=== PATIENT | female | born 1970 | race Hispanic/Latino ===

== ENCOUNTER 2017-10-17 18:39 | Inpatient (IN) | payer SELFPAY ==
[~2017-10-17 18:39] MED LIST: ISOVUE-370 76%-LOCM 1 ML ONE; Iopamidol 370 76% 50 ML VIAL FS ONE
[2017-10-17 19:06] LABS: #Lymphocytes 2.7 thou/uL (1.20-3.40); #Monocytes 0.5 thou/uL (0.11-0.59); #Neutrophils 10.8 thou/uL (1.40-6.50); %Basophils 0.2 % (0.0-1.0); %Eosinophils 0.3 % (0.0-10.0); %Monocytes 3.2 % (0.0-10.0); %Neutrophils 77.3 % (42.0-75.0); Hemoglobin 10.7 g/dL (12.0-16.0); Mean Corpuscular HGB CONC 33.6 g/dL (32.0-36.0); Mean Corpuscular Hemoglobin 28.9 pg (27.0-31.0); Mean Corpuscular Volume 86.3 fl (81.0-99.0); Mean Platelet Volume 7.8 fL (7.4-10.4); Platelet Count 377 thou/uL (130-400); RBC Distribution Width 13.7 % (11.5-14.5); Red Blood Cell (RBC) Count 3.69 mill/uL (4.20-5.40)
[2017-10-17 19:28] LABS: ALT (SGPT) 10 U/L (8-55); AST (SGOT) 14 U/L (5-34); Albumin 2.8 g/dL (3.5-5.0); Alkaline Phosphatase 167 U/L (40-150); Anion Gap 16 mmol/L (10-20); BUN (Urea Nitrogen) 19 mg/dL (7.0-18.7); Bilirubin, Total 0.3 mg/dL (0.2-1.2); Calc. Creatinine Clearance 0 mL/min (70-130); Calcium 8.5 mg/dL (7.8-10.44); Carbon Dioxide 20 mmol/L (22-29); Chloride 94 mmol/L (98-107); Estimated GFR-MDRD 38; Glucose 514 mg/dL (70-105); Potassium 3.7 mmol/L (3.5-5.1); Protein, Total 7.8 g/dL (6.0-8.3); Sodium 126 mmol/L (136-145)
[2017-10-17] MEDS ORDERED: Insulin Regular 300 UNITS/3 ML VIAL ONE (19:32)
[2017-10-17 19:43] LABS: Magnesium 1.3 mg/dL (1.6-2.6); Phosphorus 3.7 mg/dL (2.3-4.7)
--- NOTE | 2017-10-17 20:11 | CT ---
CT OF ABDOMEN AND PELVIS 10/17/17 COMPARISON: None. HISTORY: Flank pain, left upper quadrant pain. TECHNIQUE: Serial axial CT imaging at 5 mm intervals from lung bases through pubic symphysis without contrast. C oronal reformatted imaging obtained. FINDINGS: Midline sternotomy wires are present. Imaged lung bases are unremarkable. There is free intraperitoneal air noted within the right upper quadrant, the ventral aspect of the mi d abdomen, and the left upper quadrant. evaluation of the viscera, bowel, vascular structures and for lymphadenopathy is limited without contrast media. Liver is grossly unremarkable. Probable cholelith iasis noted on image 30-31. There is a large wedge shaped area of abnormal hypodensity noted within t he mid portion of the spleen, measuring 4.4 cm in transverse dimension. There is free intraperitoneal gas in the region of the gastrohepatic ligament and zeeshan hepatis. The pancreas and adrenal glands are unremarkable. The right kidney is unremarkable. There is mild prominence of the intrarenal collecting system on the left. No nephrolithiasis is seen. There is an abnormal area of density within the ventral aspect of the left renal mid pole best seen o n image 33, where there is abnormal heterogeneous density which appears to be a mix of high and low d ensity measuring up to 2.7 x 3.5 cm. This is a nonspecific lesion emanating from the anterior aspect of the mid pole left kidney and could be related to tumor or trauma. There is free fluid layering within the posterior aspect of the pelvis, and within the inferior aspec t of bilateral pericolic gutters. No focal area of bowel wall thickening is seen and no evidence for bowel obstruction is apparent. There is atherosclerotic calcification of the abdominal aorta and its pelvic branches. Review of the osseous structures demonstrates no acute osseous abnormality. Of note there are a few punctate foci of gas within the area of hypodense splenic abnormality extendi ng into the subcapsular region of the spleen. IMPRESSION: 1. Free intraperitoneal air, concerning for perforated viscus. Surgical consultation advised. 2. Abnormality in the spleen with large area of wedge shaped hypodensity which could reflect lac eration or splenic infarction. Internal gas could signify superimposed infection. 3. Abnormal lobulated lesion of mixed density emanating from the anterior aspect of the mid pole left kidney. This could represent a spontaneous hemorrhage and/or a hemorrhagic tumor. Renal abscess not fully excluded. Results called to Dr. Avina at 7:55 p.m., 10/17/17. Code CR POS: SJ
[2017-10-17] MEDS ORDERED: Piperacillin/Tazobactam 3.375 GM in Sodium Chloride 0.9% 100 ML IVPB SCH (20:30)
[2017-10-17 20:51] LABS: CKMB 0.3 ng/mL (0-6.6); Troponin I Less than 0.010 ng/mL (< 0.028)
[2017-10-17] MEDS ORDERED: Morphine 4 MG/ML VIAL ONE (21:18)
[2017-10-17 21:23] LABS: Bilirubin Negative (Negative); Blood, Urine Trace (Negative); Clarity CLOUDY (Clear); Glucose, Urine (Dipstick) >=1000 mg/dL (Negative); Leukocyte Moderate (Negative); Nitrite Positive (Negative); Protein, Urine (Dipstick) 30 mg/dL (Neg-Trace); Specific Gravity, Urine 1.024 (1.002-1.036); pH, Urine 5.5 (5.0-9.0)
[2017-10-17 21:27] LABS: Bacteria/HPF Rare-Few HPF (None Seen); Hyaline Casts/LPF 0-3 HYALINE CAST LPF (0-3 Hyaline); RBC/HPF None Seen HPF (0-3); Squamous Epithelial None Seen HPF (0-3); WBC/HPF 0-3 HPF (0-3)
--- NOTE | 2017-10-17 23:00 | CT ---
CT ABDOMEN WITH CONTRAST CT PELVIS WITH CONTRAST: DATE: 10/17/17 TIME: 10:27 p.m. HISTORY: 47-year-old female with left flank pain and abnormal noncontrast CT. COMPARISON: Noncontrast CT of three hours ago, 10/17/17, 7:34 p.m. TECHNIQUE: IV injection of iodinated contrast media: 60 mL of Isovue 370 Oral contrast media: PO Isovue. FINDINGS: Again demonstrated is the free intraperitoneal air in the nondependent, anterior upper portion of the peritoneal cavity and scattered foci of extraluminal gas posterior to the right lobe of the liver an d in the falciform ligament and zeeshan hepatis. Enteric contrast material fills the stomach, and is pr esent in loops of jejunum, ileum, and in the cecum and ascending colon. There is currently no enteric contrast material in the second and third stages of duodenum. There are small amounts of free fluid in the abdominal cavity, including left paracolic gutter (which has increased since three hours ago), a moderate volume in the cul-de-sac in the pelvis, which has also increased since the previous study , and small amounts in the mesentery, abutting multiple small bowel loops. This free fluid has modera tely high density, consistent with blood. Some of the small bowel loops are at the upper limits of no rmal in caliber. No extravasated enteric contrast material is visualized. Again demonstrated is the l eft perirenal edema. The enhancement of the left renal parenchyma is diffusely slightly low, suggesti ve of pyelonephritis. There is an approximately 2 x 3.5 x 5 cm irregularly shaped mass broadly abutti ng the anterior surface of the left renal mid pole. It has low attenuation centrally, surrounded by i ntermediate attenuation that is slightly hypodense relative to the enhancing left renal parenchyma. T he bilateral renal collecting systems are mildly dilated, left greater than right. As previously ment ioned, there is a large moderately low attenuation irregularly shaped lesion across the central porti on of the spleen, which contains gas. There is also a small amount of gas along the left anterior edg e of the splenic capsule. There are several mildly enlarged zeeshan hepatis lymph nodes. The pancreas i s unremarkable. No adrenal nodule. No abnormality of the hepatic parenchyma. No abdominal aortic diss ection, aneurysm, or rupture. IMPRESSION: 1. Pneumoperitoneum is evidence for perforated viscus. 2. Small to moderate volume of hemoperitoneum has increased since three hours ago. 3. Moderately large splenic lesion which could be splenic laceration, possibly infected (contain s gas). 4. Evidence for pyelonephritis involving the left kidney. 5. A mass broadly abutting the anterior surface of the left kidney. This is suspected to be a he matoma or phlegmon/abscess in the left perirenal space. FOZIA Torres POS: JIN
[2017-10-17 23:22] LABS: Lactic Acid 1.4 mmol/L (0.5-2.2)
[2017-10-18] MEDS ORDERED: Bupivacaine/Epinephrine 0.25% 30 ML VIAL ONE (00:12)
[2017-10-18] MEDS ORDERED: Heparin 0 ML ONE (00:12)
[2017-10-18] MEDS ORDERED: Phenylephrine HCL 10 MG/ML VIAL ONE (00:18)
[2017-10-18] MEDS ORDERED: Fentanyl 100 MCG/2 ML VIAL ONE (00:18)
[2017-10-18] MEDS ORDERED: Insulin Regular 300 UNITS/3 ML VIAL ONE (00:27)
[2017-10-18] MEDS ORDERED: Piperacillin/Tazobactam 3.375 GM VIAL ONE (01:16)
[2017-10-18] MEDS ORDERED: SUGAMMADEX SODIUM 200 MG/2 ML VIAL ONE (03:52)
[2017-10-18] MEDS ORDERED: HYDROmorphone 0.5 MG/0.5 ML SYRINGE ONE ×2 (04:07)
[2017-10-18] MEDS ORDERED: Dextrose 5% in Water 1,000 ML IV PRN (04:38)
[2017-10-18] MEDS ORDERED: Dextrose 50% Abboject 50 ML SYRINGE SLOW IVP PRN (04:38)
[2017-10-18] MEDS ORDERED: Cepastat Lozenges 1 LOZ PO PRN (04:44)
[2017-10-18] MEDS ORDERED: Chloraseptic Spray 180 ml Bottle PO PRN (04:44)
[2017-10-18] MEDS ORDERED: Morphine 4 MG/ML VIAL SLOW IVP PRN ×3 (05:01→05:04)
[2017-10-18 05:04] VITALS: BMI 26.8
[2017-10-18 05:36] LABS: Anion Gap 11 mmol/L (10-20); BUN (Urea Nitrogen) 15 mg/dL (7.0-18.7); Calc. Creatinine Clearance 81 mL/min (70-130); Calcium 7.5 mg/dL (7.8-10.44); Carbon Dioxide 18 mmol/L (22-29); Chloride 108 mmol/L (98-107); Estimated GFR-MDRD 59; Glucose 236 mg/dL (70-105); Potassium 3.8 mmol/L (3.5-5.1); Sodium 133 mmol/L (136-145)
[2017-10-18] MEDS: Acetaminophen 1,000 MG in Premix Bag 1 BAG IVPB SCH ×4 (05:45→23:22)
[2017-10-18 05:54] LABS: Band 31 % (5-11); Hemoglobin 9.3 g/dL (12.0-16.0); Lymphocytes 15 % (21-51); MDiff Complete? YES; Mean Corpuscular HGB CONC 32.8 g/dL (32.0-36.0); Mean Corpuscular Hemoglobin 28.7 pg (27.0-31.0); Mean Corpuscular Volume 87.7 fl (81.0-99.0); Metamyelocyte 9 % (0-0); Monocytes 4 % (0-10); Neutrophil 41 % (42-75); PLT Morphology Comment Appears Adequate; Platelet Count 347 thou/uL (130-400); RBC Distribution Width 13.6 % (11.5-14.5); RBC Morphology Normal; Red Blood Cell (RBC) Count 3.23 mill/uL (4.20-5.40); White Blood Cell (WBC) Count 14.8 thou/uL (4.8-10.8)
--- NOTE | 2017-10-18 08:18 | HP ---
CHIEF COMPLAINT: Abdominal pain. HISTORY OF PRESENT ILLNESS: Ms. Martin is a 47-year-old woman with sudden onset of severe left-josé miguel ed abdominal pain around 6:00 yesterday evening. She came into the Emergency Room, because the pain was severe and worsening. She states that she was not doing anything unusual at the time of the onse t of pain. She was walking into a store and had to turn around and walked out, because she felt like she was going to pass out. She denies any fevers or chills, but did have nausea, although no vomiti ng. No diarrhea, constipation or change in her bowel habits. She has never had a colonoscopy, [facility], and she denies melena and hematochezia. She has multiple medical problems, but has not been taki ng any of her medications for the past year. She cannot name any alleviating factors except for pain medication received in the emergency room, the pain is worse when she gets up to walk. PAST MEDICAL HISTORY: Diabetes, hypertension, hyperlipidemia, and coronary artery disease. PAST SURGICAL HISTORY: Coronary artery bypass grafting in 2007, , oophorectomy, and tubal l igation. SOCIAL HISTORY: She does smoke, but not frequently. She denies drug use and drinks rarely. ALLERGIES: No known drug allergies. OUTPATIENT MEDICATIONS: None. She was previously on insulin. REVIEW OF SYSTEMS: Ten system review of systems is negative except per HPI. PHYSICAL EXAMINATION: VITAL SIGNS: Patient was tachycardic to 120 on her arrival in the emergency room, but came down to a bout 100, afebrile at 97.6, respiratory rate 20, 98% saturated on room air, blood pressure initially elevated as high as 162 systolic, but then came down to 116/76 after pain medication. GENERAL: Reveals a healthy appearing woman, in no acute distress. She is not flushed or toxic in ap pearance. She is not jaundiced or icteric. She is not diaphoretic. HEENT: Unremarkable. NECK: Supple, without lymphadenopathy or thyroid nodules. HEART: Slightly tachycardic, but regular. I do not appreciate any murmurs, rubs, or gallops. LUNGS: Clear to auscultation bilaterally, although she states that it does hurt to take a deep breat h. ABDOMEN: Soft but distended. She is quite tender to palpation on the left side and has some questio nable rebound tenderness. She does not exhibit rigidity or guarding. Bowel sounds are diminished. No palpable masses or hernias. Healed lower midline incision. EXTREMITIES: Warm and well perfused without edema. NEUROLOGIC: No focal deficits. PSYCHIATRIC: Alert, oriented, and appropriate. FAMILY HISTORY: Noncontributory. LABORATORY DATA AND IMAGING: White count is 14,000, hematocrit 31.8, platelets 377. Sodium 126, bic arbonate 20, BUN and creatinine are 19 and 1.46, glucose was 514 on admission. Alkaline phosphatase is mildly elevated, but other LFTs are fairly normal except for an albumin of 2.8. Lipase was normal at 39. A CT was obtained by the ER physician on her arrival due to concern for kidney stones. She did have trace blood on her UA as well as greater than 1000 glucose and 30 protein, moderate leukocyt e esterase and nitrites. The CT did not show any kidney stones, but it did show a left renal mass as well as what appeared to be a splenic laceration versus infarct with gas in the capsule of the splee n as well as free air in the abdomen. She had a small amount of fluid in the abdomen as well. A CT was obtained with IV and p.o. contrast, because no bowel abnormalities were noted and the source of h er free air was not evident. Even with contrast, the bowel appeared normal, but on the repeat CT the re was increasing fluid in the abdomen. ASSESSMENT AND PLAN: Presumed bowel perforation given free air and free fluid, renal mass of unclear etiology and splenic infarct versus laceration. I had a long discussion with the patient regarding her findings, I did recommend that we proceed with diagnostic laparoscopy with bowel resection if a p erforation is identified. She understands that if she has a colonic injury, colostomy or ileostomy w ill likely be necessary. She denies any history to her left flank or side to explain her splenic abn ormality. In regards to her renal mass, I will plan on getting Nephrology involved during this hospi talization, but do not see the need to consult them preoperatively. She does not have hydronephrosis , but she does have inflammation of her left kidney concerning for pyelo; however, her broad spectrum antibiotics should cover this as well. She does have blood and urine cultures sent and we will foll ow these. The inherent risks of the operation were discussed. These include but are not limited to bleeding, infection, risks of anesthesia, damage to nearby structures including bowel and blood vesse ls, and ureter, need for open surgery or additional procedures, need for colostomy or ileostomy and n eed for splenectomy. She understands and accepts these risks and wishes to proceed. Antibiotics hav e already been started in the emergency room and will be continued postoperatively.
[2017-10-18] MEDS: Piperacillin/Tazobactam 3.375 GM in Sodium Chloride 0.9% 100 ML IVPB SCH ×3 (09:35→19:51)
[2017-10-18] MEDS: Enoxaparin Sodium 40 MG/0.4 ML SYRINGE SC SCH (09:35)
[2017-10-18] MEDS: Pantoprazole 40 MG VIAL IVP SCH (09:36)
--- NOTE | 2017-10-18 12:15 | CON ---
DATE OF CONSULTATION: 10/18/2017 The patient was admitted last night with abdominal pain. Dr. Palafox is the general surgeon who thou ght she had an acute abdomen because she presented with severe abdominal pain, this was yesterday dee jo. It got worse. She has multiple medical problems as outlined. She thought she had a presumed bowel perforation gett ing free air and free fluid. She underwent a laparotomy for evaluation which I am told so far is unr emarkable. She is now in the ICU hypertensive. The patient is awake, alert, responsive. Denies any pain or difficulty breathing. PAST MEDICAL HISTORY: Diabetes, hypertension, hyperlipidemia, coronary artery disease. PAST SURGICAL HISTORY: Bypass in 2007, , tubal ligation. SOCIAL HISTORY: Alcohol infrequently. Tobacco, smokes 3-4 cigarettes. No history of TB or pneumonia. Asthma. 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 REVIEW OF SYSTEMS: Otherwise, 10-point negative. MEDICATIONS: Her list of medicine from home are unknown at this time. ALLERGIES: None. PHYSICAL EXAMINATION: GENERAL: She appears to be in no distress. She is awake, alert, responsive. VITAL SIGNS: Blood pressure is low 100/54, pulse of 68, sat 98%. EXTREMITIES: No edema. CHEST: Chest reveals decreased breath sounds, no wheezing. CARDIAC: Normal S1-S2. No gallops. ABDOMEN: Soft. No masses. LABORATORY DATA: White count 14,000, H&H 8 and 28, platelet count is 147, 41 segs, 31 bands. Sodium 133. Cultures are so far negative. IMPRESSION: 1. Acute abdomen. Negative laparotomy. 2. Diabetes. 3. Coronary artery disease. PLAN: She was started on Zosyn, IV fluids, supportive care. Continue antibiotics. Once blood press ure is resolved, she could probably be transferred out of the ICU. I will follow. This is a consultation note, 70 minutes of which 50% spent in direct patient care.
[2017-10-18] MEDS: Sodium Chloride 0.9% 1,000 ML IV SCH ×2 (13:05→19:55)
--- NOTE | 2017-10-18 19:44 | CON ---
DATE OF CONSULTATION: 10/18/2017 Consultation was requested for renal mass. HISTORY OF PRESENT ILLNESS: Patient is a 47-year-old female who is pleasant, but clearly noncompliant with her health who was admitted with severe left lower quadrant pain radiating to the vagina that she has never had before. A CT scan showed multiple abnormal findings including air that was concerning for perforation of a viscus. She was taken to the operating room where she had her appendix removed; however, by report, it does not sound like the appendix was the offending issue. She also had concerning findings from the left kidney standpoint, and I was consulted. The patient reports no prior histories of urinary tract infections, no gross hematuria, no kidney stones. She does have stress urinary incontinence, but no urge incontinence, requiring 2 pads a day. She normally has frequency q.2-3 hours, nocturia x2-3. She has no difficulty with urination, incomplete emptying or straining. Two weeks prior, she did notice what she describes and sounds consistent with pneumaturia; however, this stopped and she has not had it again. Her left lower quadrant pain since the surgery is significantly better. She overall feels much better now. PAST MEDICAL HISTORY: Diabetes since age 29 for which she supposed to take insulin, but does not; depression; coronary artery disease with a presumed VT. PAST SURGICAL HISTORY: CABG in 2007. PAST ASSISTANT GUEST SERVICES MANAGER. She has 1 , 2 vaginal deliveries, ovary was removed for a cyst and she had a tubal. She has periods, but they are getting less often and her last was in July. She is not concerned of being . MEDICATIONS: None. ALLERGIES: None. She never had a colonoscopy or mammogram. She had a Pap smear last year that was questionable, so she had another procedure, what sounds like colposcopy and she does not have the results of this. She had nausea, but no vomiting, no diarrhea, no constipation. No chest pain, no shortness of breath, no coughing. She has no concerns for prolapse. SOCIAL HISTORY: She lives with her daughter. Smokes 4-5 cigarettes a day and has approximately 99-sasg-lebr history. She has alcohol maybe once a month. She does no other drugs. FAMILY HISTORY: Mother is not healthy, but alive with diabetes and had a recent amputation. Father at 55 of walking pneumonia. PHYSICAL EXAMINATION: Afebrile and VSS GENERAL: She is alert and oriented and appears comfortable in the bed. HEENT: She does have some yellow tone to her skin, but did not have obvious scleral icterus. She has no obvious JVD. She had a NG tube draining bilious fluid. She has poor/missing dentition. CARDIOVASCULAR: She had regular rate and rhythm with no murmurs, gallops or rubs. LUNGS: Clear to auscultation bilaterally. ABDOMEN: Soft, appropriately tender with a wound VAC and incisions covered with multiple different bandages. She had no CVA tenderness. EXTREMITIES: No lower extremity edema. She had yellow urine draining from Acosta. LABORATORY DATA: White count of 14.8, 31 bands and anemia of 9.3 and 28.3. BUN and creatinine are 15 and 1.01 down from 1.46. Urinalysis revealed 0-3 wbc' s, no rbc's, rare bacteria, no squamous cells, but greater than 1000 glucose and 30 protein. There is no prior urinalyses. CT scan without contrast on 10/17/2017 was reviewed personally and showed no hydronephrosis, stones or other masses. There was a 4 x 4 x 3 cm left mid collection with hypodense area within it possibly consistent with an abscess or an infarcted region of the kidney associated with changes that do not seem consistent with a primary renal mass--especially when taken into consideration of the rest of the CT scan findings. Her right kidney was normal and her bladder appeared normal. A repeat scan from 10/18/2017 with contrast was reviewed personally and revealed 2.2 cm external collection/perinephric mass with decreased uptake in the medullary portion of the kidney adjacent to this without any stones, no hydronephrosis, no air in any of this area; however, there was what looked to be possible splenic infarcts or abscesses with air in the spleen. Her bladder was full with normal uterus, but there was a collection of fluid behind the uterus. I am not concerned for any obstruction or distention of the urinary tract--such report is likely more related to a full bladder for which she now has a Acosta. ASSESSMENT AND PLAN: A 47-year-old female with a primary process most likely related to the bowel and/or spleen with an associated probable small renal abscess status post an appendectomy after an exploratory laparotomy without any concerns for urine infection at this time. I reviewed all of this with her and how I would simply monitor this while giving IV antibiotics and repeat imaging in 2-3 days to better assess the renal collection depending on what other findings have been identified or transpire. I will follow along with you. KEILY
[2017-10-18] MEDS ORDERED: Lidocaine 1% PF 5 ML VIAL ONE (19:50)
[2017-10-18] MEDS ORDERED: PROPOFOL 200 MG/20 ML VIAL ONE (19:50)
[2017-10-18] MEDS ORDERED: Glycopyrrolate 0.2 MG/ML 5 ML SYRINGE ONE (19:50)
[2017-10-18] MEDS ORDERED: Succinylcholine Chloride 20 MG/ML 10 ml SYRINGE FS ONE (19:50)
--- NOTE | 2017-10-18 21:34 | PDOC.PN ---
- Subjective Encounter Start Date: 10/18/17 Encounter Start Time: 17:00 Patient seen and examined for med mngt. Abd discomfort over the surgical site/ gen. Chart reviewed. - Objective MAR Reviewed: Yes Vital Signs & Weight: Vital Signs (12 hours) Temp 10/18/17 19:00 98.4 F 10/18/17 16:00 98.4 F 10/18/17 11:00 97.9 F Weight Admit Weight 166 lb Weight 166 lb 0.129 oz Most Recent Monitor Data Heart Rate from ECG 92 NIBP 92/49 NIBP BP-Mean 64 Respiration from ECG 19 SpO2 95 I&O: 10/17/17 10/18/17 10/19/17 06:59 06:59 06:59 Intake Total 16.1 879.4 Output Total 295 1100 Balance -278.9 -220.6 Result Diagrams: 10/20/17 03:57 10/20/17 03:57 Additional Labs: Accuchecks 10/18/17 10/18/17 10/18/17 21:07 20:00 18:49 POC Glucose 115 H 115 H 114 H 10/18/17 10/18/17 10/18/17 17:25 16:22 15:15 POC Glucose 111 H 102 114 H 10/18/17 10/18/17 10/18/17 13:03 11:04 10:04 POC Glucose 95 121 H 101 10/18/17 10/18/17 10/18/17 09:09 08:08 07:08 POC Glucose 86 142 H 182 H 10/18/17 10/18/17 10/18/17 06:08 04:45 03:49 POC Glucose 204 H 250 H 258 H 10/18/17 02:46 POC Glucose 282 H Radiology Reviewed by me: No (CT abd - reviewed) EKG Reviewed by me: Yes (Tele SR) Phys Exam - Physical Examination Constitutional: NAD NG tube + Respiratory: no wheezing, no rhonchi Cardiovascular: RRR, no rub Gastrointestinal: positive bowel sounds mild gen tend Musculoskeletal: no edema Neurological: moves all 4 limbs Psychiatric: A&O x 3 Dx/Plan - Plan DVT proph w/SCDs IMPRESSION: 1. DM2 - uncontrolled 2. CAD s/p CABG 3. Metabolic acidosis - Lactic acidosis/Mild DKA 4. HTN 5. HLD / Med noncompliance PLAN: * Cont Insulin drip * AM labs including Mg/P * Will add PRN meds * Will follow. Thank you for this consultation. Review of Systems - Review of Systems Cardiovascular: negative: chest pain, palpitations, orthopnea, paroxysmal nocturnal dyspnea, edema, light headedness, other Gastrointestinal: negative: Nausea, Vomiting, Abdominal Pain, Diarrhea, Constipation, Melena, Hematochezia, Other - Medications/Allergies Allergies/Adverse Reactions: Allergies Allergy/AdvReac Type Severity Reaction Status Date / Time No Known Drug Allergies Allergy Verified 10/18/17 03:58 Medications: Current Medications Dextrose/Water (Dextrose 50%) 25 gm SLOW IVP PRN PRN PRN Reason: PER HYPOGLYCEMIC PROTOCOL Enoxaparin Sodium (Lovenox) 40 mg SC 0900 [facility] Last Admin: 10/18/17 09:35 Dose: 40 mg Glucagon (Glucagon) 1 mg SC PRN PRN PRN Reason: PER HYPOGLYCEMIC PROTOCOL Insulin Human Regular 100 (units/ Sodium Chloride) 101 mls @ 0 mls/hr IVPB INF JO; As Directed PRN Reason: Protocol Dextrose/Water (D5w) 1,000 mls @ 0 mls/hr IV INF PRN; As Directed PRN Reason: PRN HYPOGLYCEMIC PROTOCOL Piperacillin Sod/Tazobactam (Sod 3.375 gm/ Sodium Chloride) 100 mls @ 200 mls/ hr IVPB 0200,0800,1400,2000 [facility] Last Admin: 10/18/17 19:51 Dose: 100 mls Acetaminophen 1,000 mg/ Device 100 mls @ 400 mls/hr IVPB Q6HR [facility] Stop: 10/19/17 06:01 Last Admin: 10/18/17 17:25 Dose: 100 mls Sodium Chloride (Normal Saline 0.9%) 1,000 mls @ 100 mls/hr IV .Q10H [facility] Last Admin: 10/18/17 19:55 Dose: 1,000 mls Insulin Detemir (Levemir) 0 units SC ONE PRN PRN Reason: POST-OP PROTOCOL Stop: 10/23/17 04:39 Insulin Human Regular (Humulin R) 0 units SC Q4H PRN; Protocol PRN Reason: POST OP SLIDING SCALE Morphine Sulfate (Morphine) 1 mg SLOW IVP Q1H PRN PRN Reason: Mild Pain (1-3) Morphine Sulfate (Morphine) 2 mg SLOW IVP Q1H PRN PRN Reason: Moderate Pain (4-6) Morphine Sulfate (Morphine) 3 mg SLOW IVP Q1H PRN PRN Reason: Severe Pain (7-8) Morphine Sulfate (Morphine) 4 mg SLOW IVP Q1H PRN PRN Reason: Severe Pain (9-10) Pantoprazole Sodium (Protonix) 40 mg IVP DAILY [facility] Last Admin: 10/18/17 09:36 Dose: 40 mg Phenol (Chloraseptic [place] 180 Ml Bot) 0 ml PO Q1H PRN PRN Reason: SORE THROAT Sodium Chloride (Flush - Normal Saline) 10 ml IV DAILY [facility] Last Admin: 10/18/17 19:52 Dose: 10 ml Sodium Chloride (Flush - Normal Saline) 10 ml IVF Q12HR [facility] Last Admin: 10/18/17 19:52 Dose: 10 ml Sodium Chloride (Flush - Normal Saline) 10 ml IVF PRN PRN PRN Reason: Saline Flush Throat Lozenges (Cepastat Lozenges) 1 daniel PO Q2H PRN PRN Reason: SORE THROAT
[2017-10-18] MEDS: Morphine 4 MG/ML VIAL SLOW IVP PRN (22:07)
[2017-10-19] MEDS: Piperacillin/Tazobactam 3.375 GM in Sodium Chloride 0.9% 100 ML IVPB SCH ×4 (01:46→20:23)
[2017-10-19] MEDS: Morphine 4 MG/ML VIAL SLOW IVP PRN ×2 (03:06→09:15)
--- NOTE | 2017-10-19 03:32 | OP ---
DATE OF SURGERY: 10/18/2017 PROCEDURE: Diagnostic hand-assisted laparoscopy and appendectomy. HISTORY: Ms. Martin is a 47-year-old woman who presented to the hospital with sudden onset of abdo manuel pain; free fluid and free air on CT. Her pain was primarily left-sided in location and she had early signs of peritonitis. Recommendation was made to proceed to the operating room for laparoscop y, possible laparotomy, possible bowel resection, possible ostomy. She was also noted to have a sple maureen abnormality consistent with a possible laceration or infarction with some subcapsular gas, so she was consented for splenectomy as well. PROCEDURE IN DETAIL: After informed consent was obtained and appropriate preoperative antibiotics co ntinued, the patient was taken to the operating room. She was placed in the supine position and gene ral endotracheal anesthesia was administered. She was prepped and draped in a standard sterile fashi on. Local anesthesia infused to the skin and subcutaneous tissues at the level of the umbilicus. A transverse skin incision was made and the fascia was elevated. A Veress needle was placed into the a bdominal cavity without difficulty and carbon dioxide gas easily insufflated to an intra-abdominal pr essure of 15, which the patient tolerated well. Opening pressure was 5. The Veress needle was withd rawn and a [place] scope advanced under direct vision into the abdominal cavity, which was carefull y examined. There was no evidence of Veress needle or of trocar injury. The patient was noted to palmer ve purulent exudate on the bowel, as well as brown murky fluid consistent with feculent peritonitis. She had some minimal lower midline omental adhesions as well, but no other significant intra-abdomin al adhesions. Local anesthesia was infused in the right and left lateral positions and 5-mm trocars placed under direct laparoscopic vision. Some of the murky fluid was suctioned out and sent for cult ure. This had a foul odor to it, again consistent with feculent peritonitis. The abdomen was suctio jazmín clear of as much of the fluid as possible with several 100 mL removed. This was primarily in the paracolic gutters and pelvis with the most purulent fluid in the left paracolic gutter. The colon a ppeared pink, soft, and normal. There was no visible perforation on the antimesenteric side. The ap pendix tip appeared inflamed, but it was felt that this was likely reactive due to being in the pelvi s. The cecum and transverse colon were filled with gas and soft and pliable, as was the descending a nd sigmoid colon. However, on evaluation of the left paracolic gutter, there was a large amount of p urulent fluid behind the descending colon concerning for the origin of perforation. This was unable to be adequately exposed laparoscopically, so the decision was made to place a hand port. The colon was rotated medially, but the plane behind the colon appeared normal. The bowel was carefully palpat ed and no perforation was able to be identified and no thickened or inflamed segment of colon was fou nd. The left colon was rotated medially to carefully examine the entire surface, but there was no ab normality identified and there was no palpable gas within the mesocolon. The splenic flexure was sof t and pliable and the surface of the spleen was palpated, and large amount of purulent fluid suctione d out from around the spleen, but the splenic capsule was not entered and the spleen itself was not f ully mobilized. The stomach and duodenum were soft and normal in appearance as well, and the small i ntestine from the ligament of Treitz to the ileocecal valve was soft and normal. There was no biliou s staining of the peritoneal fluid consistent with a gastric or small bowel perforation. The appendi x was removed due to inability to exclude appendicitis. The mesoappendix was ligated down to the bas e, which was normal. Two endoloops were placed and the appendix was divided and removed through the GelPort. The abdomen was copiously irrigated to clear. The colon was then submerged in saline and g as moved from the right colon through the transverse colon down to the descending colon into the sigm oid colon under saline, carefully observing for any bubbling of gas and none was observed. Since the re were no focal abnormalities able to be identified in the bowel and no secondary evidence of inflam mation to help localize a perforation, the decision was made to irrigate the abdomen and place drains and carefully observe the patient with plans to return to the OR after imaging with rectal contrast if any further feculent drainage was noted. The abdomen was irrigated with 9 mL of warm saline until all return was clear. Drains were brought out through the right lateral and suprapubic ports with t he right drain placed on the right paracolic gutter and into the pelvis, and the suprapubic trocar pl aced at the left paracolic gutter and lateral to the spleen. These were secured to the skin and the other dissecting trocars removed under direct vision and hemostasis verified. The GelPort was then r emoved and the omentum brought down under the midline incision. Seprafilm was placed and the fascia was closed under direct vision with a running PDS suture. The skin incisions were copiously irrigate d. The drains were secured to the skin with drain sutures and the epigastric and suprapubic incision s closed with 4-0 Monocryl. The umbilicus was reapproximated and wet-to-dry dressings placed at the hand-port incision. The patient was extubated and taken to CCU in stable condition. Estimated blood loss was minimal. There were no complications. SPECIMENS: Appendix and peritoneal fluid for Gram stain and culture.
[2017-10-19 04:29] LABS: Anion Gap 8 mmol/L (10-20); BUN (Urea Nitrogen) 14 mg/dL (7.0-18.7); Calc. Creatinine Clearance 92 mL/min (70-130); Calcium 7.7 mg/dL (7.8-10.44); Carbon Dioxide 21 mmol/L (22-29); Chloride 112 mmol/L (98-107); Estimated GFR-MDRD 68; Glucose 116 mg/dL (70-105); Magnesium 1.3 mg/dL (1.6-2.6); Phosphorus 3.1 mg/dL (2.3-4.7); Potassium 3.3 mmol/L (3.5-5.1); Sodium 138 mmol/L (136-145)
[2017-10-19 04:33] LABS: Band 43 % (5-11); Hemoglobin 8.4 g/dL (12.0-16.0); Lymphocytes 18 % (21-51); MDiff Complete? YES; Mean Corpuscular HGB CONC 32.5 g/dL (32.0-36.0); Mean Corpuscular Hemoglobin 29.1 pg (27.0-31.0); Mean Corpuscular Volume 89.6 fl (81.0-99.0); Neutrophil 39 % (42-75); PLT Morphology Comment Appears Adequate; Platelet Count 336 thou/uL (130-400); RBC Distribution Width 13.6 % (11.5-14.5); Red Blood Cell (RBC) Count 2.89 mill/uL (4.20-5.40); White Blood Cell (WBC) Count 14.1 thou/uL (4.8-10.8)
[2017-10-19] MEDS ORDERED: Insulin Detemir 100 UNITS/ML 4 UNITS in Pre-Filled Syringe 1 EACH SC SCH (04:45)
[2017-10-19] MEDS: Acetaminophen 1,000 MG in Premix Bag 1 BAG IVPB SCH (05:26)
[2017-10-19] MEDS ORDERED: CCU Electrolyte Replacement 1 EACH FS SCH (07:27)
[2017-10-19] MEDS ORDERED: Potassium Phosphate 9 MMOL in Sodium Chloride 0.9% 100 ML IVPB PRN (07:31)
[2017-10-19] MEDS ORDERED: Potassium Phosphate 15 MMOL in Sodium Chloride 0.9% 250 ML 250 ML IV PRN (07:31)
[2017-10-19] MEDS ORDERED: Magnesium 2 GM/NS 0.9% 100 ML 2 GM in Premix Bag 1 BAG IVPB PRN (07:31)
[2017-10-19] MEDS ORDERED: CCU ELECTROLYTE REPLACEMENT PROTOCOL FS PRN (07:31)
[2017-10-19] MEDS ORDERED: Potassium Chloride 20 MEQ TAB PO PRN (07:31)
[2017-10-19] MEDS ORDERED: Magnesium Oxide 400 MG TAB PO PRN ×2 (07:31)
[2017-10-19] MEDS ORDERED: Potassium Phosphate 12 MMOL in Sodium Chloride 0.9% 250 ML 250 ML IV PRN (07:31)
[2017-10-19] MEDS ORDERED: Potassium Chloride 40 MEQ in Premix Bag 1 BAG IVPB PRN (07:31)
[2017-10-19] MEDS ORDERED: Potassium Chloride 40 MEQ in Sodium Chloride 0.9% 250 ML 250 ML IVPB PRN (07:31)
[2017-10-19] MEDS: Sodium Chloride 0.9% 1,000 ML IV SCH ×2 (08:22→20:25)
[2017-10-19] MEDS: Pantoprazole 40 MG VIAL IVP SCH (08:23)
[2017-10-19] MEDS: Enoxaparin Sodium 40 MG/0.4 ML SYRINGE SC SCH (08:23)
--- NOTE | 2017-10-19 09:21 | PRG ---
DATE OF SERVICE: 10/19/2017 SUBJECTIVE: This morning, awake, alert, responsive, better, less abdominal pain. No shortness of br eath. She is coughing, but clear sputum. OBJECTIVE: VITAL SIGNS: Temperature is 98, pulse 87, blood pressure 106/56, respirations 18, sats are 100%. CHEST: No wheezing or crackles. CARDIAC: Normal S1, S2, no gallops. ABDOMEN: Soft. LABORATORY DATA: White count 14,000, H&H is 8 and 25, platelet count 336, 43 bands, 39 neutrophils, potassium is 3.3. Urine is growing E. coli. IMPRESSION: 1. Acute abdomen, negative laparotomy. 2. Urinary tract infection. 3. Major bandemia. PLAN: Continue antibiotics, supportive care, and PT. Disposition as per General Surgery. Concerned about the marked bandemia. We will follow while in the ICU.
[2017-10-19] MEDS: Potassium Chloride 20 MEQ in Premix Bag 1 BAG IVPB SCH ×2 (09:47→11:44)
--- NOTE | 2017-10-19 11:59 | PRG ---
DATE OF SERVICE: 10/19/2017 SUBJECTIVE: The patient still feels well, significantly better than upon admission. She has passed gas and feels some rumbling in her abdomen. OBJECTIVE: Her vitals have been stable, satting 100% on room air. NG tube put out 300, drains toget her put out 170, and urine output was 1340. The NG tube still has light green drainage. Urine outpu t is clear. LABORATORY DATA: Her urine culture and peritoneal fluid culture show E. coli, which is sensitive to Zosyn. Her creatinine is improved at 0.89. Her white count is stable, but bands have increased. ASSESSMENT AND PLAN: In assessment, we have a 47-year-old female, admitted with a concern for bowel perforation, status post exploratory laparotomy and appendectomy with positive urine culture and smal l renal abscess, but unsure whether this is translocation, making the original source of infection un clear at this time. Given she is clinically improving, I would continue IV antibiotics and I will re peat the CT scan in the next 24-48 hours. Continue Zosyn and Acosta for now.
[2017-10-19] MEDS ORDERED: Dextrose 5% in Water 1,000 ML IV PRN (12:57)
[2017-10-19] MEDS ORDERED: traMADol HCl 50 MG TAB PO PRN (15:41)
[2017-10-19] MEDS ORDERED: Acetaminophen 500 MG TAB PO PRN (15:41)
--- NOTE | 2017-10-19 16:49 | PRG ---
DATE OF SERVICE: 10/19/2017 SUBJECTIVE: Ms. Fabiano Martin is in the ICU, transfer orders have been written by hospitalist to t surgical floor. The patient complains of minimal pain and states she is feeling much better. OBJECTIVE: VITAL SIGNS: Blood pressure 103/60, heart rate 86, respiratory rate 26. Patient's NG tube output palmer s been 300 mL in the last 24 hours. Acosta output is 1340 in the last 24 hours. GIUSEPPE drain is more ser ous fluid. The patient reports passing flatus. LUNGS: Clear to auscultation. CARDIAC: Regular rate and rhythm without murmur or gallop. ABDOMEN: Soft and nontender. Bowel sounds are diminished. EXTREMITIES: Unremarkable. LABORATORY DATA: White count 14, hemoglobin 8.4, BUN 14, creatinine 0.89, sodium 138. ASSESSMENT AND PLAN: Doing well. Agree with transfer to the floor. We will plan to remove her NG t ube. We will allow her to increase her activity, continue her GIUSEPPE drain.
--- NOTE | 2017-10-19 19:36 | PDOC.PN ---
- Subjective Encounter Start Date: 10/19/17 Encounter Start Time: 11:30 Patient seen and examined for med mngt. No new complaints. No overnight events - Objective MAR Reviewed: Yes Vital Signs & Weight: Vital Signs (12 hours) Temp Pulse Resp BP Pulse Ox 10/19/17 16:15 97.4 F L 96 20 125/73 97 10/19/17 16:00 97.4 F L 96 20 97 10/19/17 12:00 98.7 F 10/19/17 08:00 98.6 F 90 20 96 Weight Admit Weight 166 lb Weight 166 lb 0.129 oz Most Recent Monitor Data Heart Rate from ECG 90 NIBP 111/66 NIBP BP-Mean 82 Respiration from ECG 25 SpO2 100 I&O: 10/18/17 10/19/17 10/20/17 06:59 06:59 06:59 Intake Total 16.1 2460.3 1267 Output Total 295 1810 265 Balance -278.9 650.3 1002 Result Diagrams: 10/20/17 03:57 10/20/17 03:57 Additional Labs: Accuchecks 10/19/17 10/19/17 10/19/17 17:14 11:47 04:36 POC Glucose 94 109 111 H 10/19/17 10/19/17 10/19/17 03:14 01:57 00:04 POC Glucose 128 H 131 H 131 H 10/18/17 10/18/17 10/18/17 23:28 22:12 21:07 POC Glucose 125 H 122 H 115 H 10/18/17 10/18/17 10/18/17 20:00 18:49 17:25 POC Glucose 115 H 114 H 111 H EKG Reviewed by me: Yes (Tele SR) Phys Exam - Physical Examination Constitutional: NAD NG tube Respiratory: no wheezing, no rhonchi Cardiovascular: RRR, no rub Gastrointestinal: soft, positive bowel sounds Musculoskeletal: no edema Neurological: moves all 4 limbs Dx/Plan - Plan DVT proph w/SCDs IMPRESSION: 1. DM2 - better controlled 2. CAD s/p CABG 3. Metabolic acidosis - Lactic acidosis/Mild DKA 4. HTN 5. HLD / Hypokalemia/ Hypomagnesemia/ Med noncompliance PLAN: * Cont post op Insulin sliding scale * Replace electrolytes * AM labs Review of Systems - Review of Systems Cardiovascular: negative: chest pain, palpitations, orthopnea, paroxysmal nocturnal dyspnea, edema, light headedness, other Gastrointestinal: negative: Nausea, Vomiting, Abdominal Pain, Diarrhea, Constipation, Melena, Hematochezia, Other - Medications/Allergies Allergies/Adverse Reactions: Allergies Allergy/AdvReac Type Severity Reaction Status Date / Time No Known Drug Allergies Allergy Verified 10/18/17 03:58 Medications: Current Medications Acetaminophen (Tylenol) 1,000 mg PO Q6H PRN PRN Reason: Moderate to Severe Pain (6-10) Dextrose/Water (Dextrose 50%) 25 gm SLOW IVP PRN PRN PRN Reason: PER HYPOGLYCEMIC PROTOCOL Enoxaparin Sodium (Lovenox) 40 mg SC 0900 [facility] Last Admin: 10/19/17 08:23 Dose: 40 mg Glucagon (Glucagon) 1 mg SC PRN PRN PRN Reason: PER HYPOGLYCEMIC PROTOCOL Piperacillin Sod/Tazobactam (Sod 3.375 gm/ Sodium Chloride) 100 mls @ 200 mls/ hr IVPB 0200,0800,1400,2000 [facility] Last Admin: 10/19/17 16:00 Dose: 100 mls Sodium Chloride (Normal Saline 0.9%) 1,000 mls @ 100 mls/hr IV .Q10H [facility] Last Admin: 10/19/17 08:22 Dose: 1,000 mls Dextrose/Water (D5w) 1,000 mls @ 0 mls/hr IV .Q0M PRN; As Directed PRN Reason: Hypoglycemia Insulin Human Regular (Humulin R) 0 units SC Q4H PRN; Protocol PRN Reason: POST OP SLIDING SCALE Morphine Sulfate (Morphine) 2 mg SLOW IVP Q1H PRN PRN Reason: Moderate Pain (4-6) Last Admin: 10/19/17 09:15 Dose: 2 mg Morphine Sulfate (Morphine) 4 mg SLOW IVP Q1H PRN PRN Reason: Severe Pain (9-10) Pantoprazole Sodium (Protonix) 40 mg IVP DAILY [facility] Last Admin: 10/19/17 08:23 Dose: 40 mg Phenol (Chloraseptic Wall 180 Ml Bot) 0 ml PO Q1H PRN PRN Reason: SORE THROAT Polyethylene Glycol (Miralax) 17 gm PO DAILY [facility] Sodium Chloride (Flush - Normal Saline) 10 ml IV DAILY [facility] Last Admin: 10/19/17 08:23 Dose: 10 ml Sodium Chloride (Flush - Normal Saline) 10 ml IVF Q12HR [facility] Last Admin: 10/19/17 08:23 Dose: 10 ml Sodium Chloride (Flush - Normal Saline) 10 ml IVF PRN PRN PRN Reason: Saline Flush Throat Lozenges (Cepastat Lozenges) 1 daniel PO Q2H PRN PRN Reason: SORE THROAT Tramadol HCl (Ultram) 50 mg PO Q6H PRN PRN Reason: Pain 1ST LINE Tramadol HCl (Ultram) 100 mg PO Q6H PRN PRN Reason: Pain 2ND LINE
[2017-10-20] MEDS: Piperacillin/Tazobactam 3.375 GM in Sodium Chloride 0.9% 100 ML IVPB SCH ×4 (02:14→20:43)
[2017-10-20 04:22] LABS: #Eosinphils 0.1 thou/uL (0.0-0.7); #Lymphocytes 2.3 thou/uL (1.20-3.40); #Monocytes 0.6 thou/uL (0.11-0.59); #Neutrophils 11.5 thou/uL (1.40-6.50); %Basophils 0.3 % (0.0-1.0); %Eosinophils 0.7 % (0.0-10.0); %Lymphocytes 15.9 % (21.0-51.0); %Monocytes 4.1 % (0.0-10.0); Hemoglobin 8.8 g/dL (12.0-16.0); Mean Corpuscular HGB CONC 33.2 g/dL (32.0-36.0); Mean Corpuscular Hemoglobin 30.3 pg (27.0-31.0); Mean Corpuscular Volume 91.1 fl (81.0-99.0); Mean Platelet Volume 7.6 fL (7.4-10.4); Platelet Count 357 thou/uL (130-400); RBC Distribution Width 13.8 % (11.5-14.5); White Blood Cell (WBC) Count 14.5 thou/uL (4.8-10.8)
[2017-10-20 04:34] LABS: Anion Gap 9 mmol/L (10-20); BUN (Urea Nitrogen) 11 mg/dL (7.0-18.7); Calc. Creatinine Clearance 101 mL/min (70-130); Carbon Dioxide 21 mmol/L (22-29); Chloride 107 mmol/L (98-107); Estimated GFR-MDRD 75; Glucose 97 mg/dL (70-105); Magnesium 1.6 mg/dL (1.6-2.6); Phosphorus 2.5 mg/dL (2.3-4.7); Potassium 4.1 mmol/L (3.5-5.1); Sodium 133 mmol/L (136-145)
[2017-10-20] MEDS: Sodium Chloride 0.9% 1,000 ML IV SCH ×3 (05:12→22:57)
[2017-10-20] MEDS ORDERED: ISOVUE-370 76%-LOCM 1 ML ONE (06:30)
[2017-10-20] MEDS: Enoxaparin Sodium 40 MG/0.4 ML SYRINGE SC SCH (08:41)
[2017-10-20] MEDS: Pantoprazole 40 MG VIAL IVP SCH (08:41)
[2017-10-20] MEDS: Polyethylene Glycol 3350 17 GM Packet PO SCH (08:41)
--- NOTE | 2017-10-20 13:28 | PRG ---
DATE OF SERVICE: 10/20/2017 SUBJECTIVE: Awake, alert, and responsive. No shortness of breath. OBJECTIVE: VITAL SIGNS: Blood pressure 130/81, sats are 95% on room air, respiration rate 18, temperature 98. CHEST: Chest reveals decreased breath sounds, no wheezing or crackles. CARDIAC: Normal S1, S2, no gallops. ABDOMEN: Soft. LABORATORY DATA: Urine is growing E. coli sensitive to the present antibiotics. White count is 14,0 00, H&H is 8 and 26, otherwise sodium is 133. IMPRESSION: 1. Status post lap, respiratory resolved. 2. Urinary tract infection. PLAN: Disposition as per Surgery. Pulmonary and Critical care will follow at a distance.
--- NOTE | 2017-10-20 15:49 | CT ---
CT ABDOMEN AND PELVIS WITH AND WITHOUT CONTRAST: INDICATIONS: Assess function and left perirenal abscess. Exam was performed to follow up on a splenic lesion n oted on the prior study. COMPARISON: 10/17/2017 TECHNIQUE: Multiple axial tomograms obtained through the abdomen and pelvis pre and post IV contrast. Post cont rast images were obtained in portal venous and delayed venous phases, following a urogram protocol. FINDINGS: The patient is postop since the prior exam. There are internal drainage catheters present, and the p atient underwent an appendectomy at the time of the exploratory surgery, according to the technologis t. There is now a small left pleural effusion. There is a tiny right pleural effusion. There is bibasi lar lung atelectasis. The liver is unremarkable. There continues to be a larger area of low attenuation within the spleen, similar in size to the prio r exam. There continue to be a few scattered tiny gas pockets within this area of low attenuation, a s described on the prior exam. The pancreas is unremarkable. The adrenal glands are unremarkable. There continues to be a low density, mass-like area involving the superior mid left kidney, anteriorl y. There is surrounding haziness, and there appears to be surrounding enhancement. The localized ar ea of low attenuation, anteriorly, measures 3 cm. There is also los attenuation within the renal cor edwin, involving the left kidney, similar to the prior study. There is diffuse decreased enhancement i n the left kidney. The findings continue to suggest left pyelonephritis with intrarenal and perirena l abscess collection. The right kidney is unremarkable. The ureters are unremarkable. The urinary bladder is unremarkable. Small bowel loops are of normal caliber. The colon is unremarkable. The uterus and adnexa are unremarkable. On the delayed sequence, there is excretion of contrast in the collecting structures bilaterally. Th ere is distortion of the collecting structures of the upper mid left kidney, at the site of the mass. There is a filling defect within the renal pelvis, on the left, which could represent hematoma or i nfection. There is contrast seen in both ureters, although the left ureter shows wall thickening and inflammatory stranding. IMPRESSION: 1. Small bilateral pleural effusions with bibasilar atelectasis is now present. 2. Irregularly-shaped low attenuation in the spleen that is unchanged in size and extent when compar ed to the prior study. There continues to be tiny gas pockets within this area of low attenuation. 3. The left kidney shows perinephric haziness, decreased enhancement/function, an abnormal low atten uation in the anterior cortex, and an exophytic area of low attenuation, consistent with a perirenal abscess collection. These findings involving the left kidney do not appear significantly changed fro m 10/17/2017. 4. The delayed sequence images show distortion of the upper mid collecting structures of the left ki dney and filling defect within the collecting structures of the left kidney, as described above. POS: KIEL
--- NOTE | 2017-10-20 16:02 | PRG ---
DATE OF SERVICE: 10/20/2017 SUBJECTIVE: Patient is done well overnight, and someone removed her catheter. She has been voiding fine. She has no flank pain, only abdominal pain. She is not nauseous. She has been passing gas and tolerating clear liquids. OBJECTIVE: She has remained afebrile with vital signs stable; it appears that only 195mL has been measured for output, but I suspect this is because the catheter has been removed and not measured appropriately. She has no CVA tenderness. LABORATORY DATA: Her white count is stable at 14.5. H&H is stable at 8.8 and 26.4 and her creatinine is good at 0.81. ASSESSMENT AND PLAN: We have a 47-year-old female admitted with concern for bowel perforation, status post exlap/appendectomy and no obvious etiology of perforation. She also has a small renal abscess that is clinically improving. I will repeat a CT scan in the next 24 hours to ensure it is stable. Unless it is enlarged, given her clinical improvement, I would continue IV antibiotics only. I stressed to her that she will need to continue these even as an outpatient for a total of 4 weeks. She should continue getting IV antibiotics as long as she is in house. I'll continue to follow along. KEILY
[2017-10-20] MEDS: traMADol HCl 50 MG TAB PO PRN (21:04)
--- NOTE | 2017-10-20 22:33 | PDOC.PN ---
- Subjective Encounter Start Date: 10/20/17 Encounter Start Time: 12:00 Patient seen and examined for med mngt. No new complaints. No overnight events - Objective MAR Reviewed: Yes Vital Signs & Weight: Vital Signs (12 hours) Temp Pulse Resp BP BP Pulse Ox 10/20/17 19:32 98 F 97 16 129/78 96 10/20/17 15:50 97.9 F 95 20 152/87 H 97 10/20/17 12:00 98.3 F 88 20 128/75 98 Weight Admit Weight 166 lb Weight 166 lb 0.129 oz Most Recent Monitor Data Heart Rate from ECG 90 NIBP 111/66 NIBP BP-Mean 82 Respiration from ECG 25 SpO2 100 I&O: 10/19/17 10/20/17 10/21/17 06:59 06:59 06:59 Intake Total 2460.3 2237 500 Output Total 1810 305 545 Balance 650.3 1932 -45 Result Diagrams: 10/20/17 03:57 10/20/17 03:57 Additional Labs: Accuchecks 10/20/17 10/20/17 10/20/17 20:51 17:01 12:53 POC Glucose 285 H 203 H 127 H 10/20/17 10/20/17 10/20/17 08:41 05:19 01:49 POC Glucose 104 102 104 Phys Exam - Physical Examination Constitutional: NAD Respiratory: no wheezing, no rhonchi Cardiovascular: RRR, no rub Gastrointestinal: soft, positive bowel sounds mild gen tenderness Musculoskeletal: no edema Dx/Plan - Plan DVT proph w/lovenox, DVT proph w/SCDs IMPRESSION/PLAN: 1. DM2 Add NPH Cont sliding scale Dec IVF rate to 70 ml/hr Add 10 units NPH daily 2. CAD s/p CABG Will add low dose ASA 3. HTN - controlled Cont to monitor 4. HLD / Hypokalemia/ Hypomagnesemia/ Med noncompliance / Metabolic acidosis - Lactic acidosis/Mild DKA - improved 5. Bowel perforation/Renal abscess - Mngt per Surg/Urology Review of Systems - Review of Systems Respiratory: negative: Cough, Dry, Shortness of Breath, Hemoptysis, SOB with Excertion, Pleuritic Pain, Sputum, Wheezing Cardiovascular: negative: chest pain, palpitations, orthopnea, paroxysmal nocturnal dyspnea, edema, light headedness, other - Medications/Allergies Allergies/Adverse Reactions: Allergies Allergy/AdvReac Type Severity Reaction Status Date / Time No Known Drug Allergies Allergy Verified 10/18/17 03:58 Medications: Current Medications Acetaminophen (Tylenol) 1,000 mg PO Q6H PRN PRN Reason: Moderate to Severe Pain (6-10) Dextrose/Water (Dextrose 50%) 25 gm SLOW IVP PRN PRN PRN Reason: PER HYPOGLYCEMIC PROTOCOL Enoxaparin Sodium (Lovenox) 40 mg SC 0900 [facility] Last Admin: 10/20/17 08:41 Dose: 40 mg Glucagon (Glucagon) 1 mg SC PRN PRN PRN Reason: PER HYPOGLYCEMIC PROTOCOL Piperacillin Sod/Tazobactam (Sod 3.375 gm/ Sodium Chloride) 100 mls @ 200 mls/ hr IVPB 0200,0800,1400,2000 [facility] Last Admin: 10/20/17 20:43 Dose: 100 mls Dextrose/Water (D5w) 1,000 mls @ 0 mls/hr IV .Q0M PRN; As Directed PRN Reason: Hypoglycemia Sodium Chloride (Normal Saline 0.9%) 1,000 mls @ 70 mls/hr IV .[id number] [facility] Insulin Human NPH (Humulin N) 10 unit SC QAM-WM [facility] Insulin Human Regular (Humulin R) 0 units SC Q4H PRN; Protocol PRN Reason: POST OP SLIDING SCALE Morphine Sulfate (Morphine) 2 mg SLOW IVP Q1H PRN PRN Reason: Moderate Pain (4-6) Last Admin: 10/19/17 09:15 Dose: 2 mg Morphine Sulfate (Morphine) 4 mg SLOW IVP Q1H PRN PRN Reason: Severe Pain (9-10) Pantoprazole Sodium (Protonix) 40 mg PO DAILY [facility] Phenol (Chloraseptic Rescue 180 Ml Bot) 0 ml PO Q1H PRN PRN Reason: SORE THROAT Polyethylene Glycol (Miralax) 17 gm PO DAILY [facility] Last Admin: 10/20/17 08:41 Dose: 17 gm Saccharomyces Boulardii (Florastor) 250 mg PO DAILY [facility] Sodium Chloride (Flush - Normal Saline) 10 ml IV DAILY [facility] Last Admin: 10/19/17 08:23 Dose: 10 ml Sodium Chloride (Flush - Normal Saline) 10 ml IVF Q12HR [facility] Last Admin: 10/20/17 20:44 Dose: 10 ml Sodium Chloride (Flush - Normal Saline) 10 ml IVF PRN PRN PRN Reason: Saline Flush Throat Lozenges (Cepastat Lozenges) 1 daniel PO Q2H PRN PRN Reason: SORE THROAT Tramadol HCl (Ultram) 50 mg PO Q6H PRN PRN Reason: Pain 1ST LINE Last Admin: 10/19/17 23:11 Dose: 50 mg Tramadol HCl (Ultram) 100 mg PO Q6H PRN PRN Reason: Pain 2ND LINE Last Admin: 10/20/17 21:04 Dose: 100 mg
[2017-10-20] MEDS: Insulin Regular 300 UNITS/3 ML VIAL SC PRN (23:05)
[2017-10-21] MEDS: Piperacillin/Tazobactam 3.375 GM in Sodium Chloride 0.9% 100 ML IVPB SCH ×4 (02:08→20:34)
[2017-10-21] MEDS: Insulin Regular 300 UNITS/3 ML VIAL SC PRN (02:14)
[2017-10-21 04:22] LABS: Band 5 % (5-11); Hemoglobin 8.8 g/dL (12.0-16.0); Lymphocytes 24 % (21-51); MDiff Complete? YES; Mean Corpuscular HGB CONC 32.4 g/dL (32.0-36.0); Mean Corpuscular Hemoglobin 28.8 pg (27.0-31.0); Mean Corpuscular Volume 89.1 fl (81.0-99.0); Mean Platelet Volume 7.2 fL (7.4-10.4); Metamyelocyte 1 % (0-0); Monocytes 7 % (0-10); Neutrophil 63 % (42-75); PLT Morphology Comment Appears Adequate; Platelet Count 357 thou/uL (130-400); RBC Distribution Width 14.1 % (11.5-14.5); Red Blood Cell (RBC) Count 3.05 mill/uL (4.20-5.40); White Blood Cell (WBC) Count 11.7 thou/uL (4.8-10.8)
[2017-10-21 04:35] LABS: Anion Gap 10 mmol/L (10-20); BUN (Urea Nitrogen) 9 mg/dL (7.0-18.7); Calc. Creatinine Clearance 96 mL/min (70-130); Calcium 7.7 mg/dL (7.8-10.44); Carbon Dioxide 23 mmol/L (22-29); Chloride 103 mmol/L (98-107); Estimated GFR-MDRD 71; Glucose 207 mg/dL (70-105); Potassium 3.7 mmol/L (3.5-5.1); Sodium 132 mmol/L (136-145)
[2017-10-21] MEDS: Enoxaparin Sodium 40 MG/0.4 ML SYRINGE SC SCH (09:29)
[2017-10-21] MEDS: Aspirin 81 mg Enteric Coated Tablet PO SCH (09:30)
[2017-10-21] MEDS: Polyethylene Glycol 3350 17 GM Packet PO SCH (09:30)
[2017-10-21] MEDS: Saccharomyces boulardii 250 MG CAP PO SCH (09:30)
--- NOTE | 2017-10-21 10:31 | PRG ---
DATE OF SERVICE: 10/21/2017 SUBJECTIVE: Awake, alert, and responsive. Denies coughing or wheezing. OBJECTIVE: VITAL SIGNS: Remains afebrile, temperature 98, sats 95% room air, respirations 16, pulse 92, blood p ressure 128/57. CHEST: No wheezing or crackles. CARDIAC: Normal S1 and S2, no gallops. ABDOMEN: Soft. LABORATORY DATA: White count 11,000. Electrolytes are normal. IMAGING: She had a repeat CT abdomen and pelvis done yesterday, [facility] IMPRESSION: 1. Status post laparoscopy for abdominal pain, negative. 2. Bibasilar atelectasis, stable. 3. No evidence of renal failure. PLAN: Antibiotics as per Surgery. Pulmonary and Critical care will follow at a distance. Antibioti cs should suffice for her pulmonary process. Ambulation. Avoid smoking. Please call as needed.
--- NOTE | 2017-10-21 10:58 | PRG ---
DATE OF SERVICE: 10/21/2017 SUBJECTIVE: The patient feels well. She has some less abdominal pain. She has no flank pain or arlin k pain. She is voiding without difficulty. She is tolerating a diet. OBJECTIVE: VITAL SIGNS: Vital signs have been stable. She has remained afebrile, heart rate remains in the 90s -100s. She is saturating 95% on room air. Her urine output is no longer being recorded. She has no CVA tenderness. LABORATORY DATA: White count has come down to 11.7 with bands of 5. Her H&H is stable. Creatinine is stable at 0.85 and cultures have not changed with E. coli being present in both her peritoneal flu id and her urine. CT scan, which was repeated from 10/20/2017 and reviewed personally reveals about a 2 x 3 cm external collection depending on which portion you measure up to 4 cm collection which is relatively unchange d from the prior exam. It just is now a more organized collection with contrast being excreted all t he way down to the bladder and concern for a filling defect that might be related to papillary necros is, but definitely not concerning from a hematuria standpoint as she has none of this. Her other CT findings are relatively unchanged as well. ASSESSMENT: We have a 47-year-old diabetic female with a renal abscess and positive urine culture as well as CT findings concerning for perforated viscus, although none has been noted and a urinalysis that was relatively unremarkable upon admission. From my standpoint, she definitely needs 4 weeks of antibiotics and I would reimage her with a renal ultrasound at that time to determine whether the co llection has resolved and the need for further antibiotics would be indicated depending on the result s. However, based on all the other CT findings, I think it is a good idea to get Infectious Disease involved so they can give recommendations on how long she would need IV versus oral and which antibio tics would be most appropriate at this time so I have consulted them and would appreciate their exper tise.
[2017-10-21] MEDS: NPH, Human Insulin Isophane 300 UNIT/3 ML VIAL SC SCH (11:54)
[2017-10-21] MEDS: traMADol HCl 50 MG TAB PO PRN (12:07)
[2017-10-21] MEDS: Sodium Chloride 0.9% 1,000 ML IV SCH (12:32)
[2017-10-21] MEDS ORDERED: Dextrose 50% Abboject 50 ML SYRINGE SLOW IVP PRN (15:49)
[2017-10-21] MEDS ORDERED: Dextrose 5% in Water 1,000 ML IV PRN (15:49)
--- NOTE | 2017-10-21 16:07 | PDOC.PN ---
- Subjective Encounter Start Date: 10/21/17 Encounter Start Time: 16:05 Ms. Martin was seen in follow-up of Bowel perforation, and diabetes. She says she feels much better. She has less abdominal pain. - Objective MAR Reviewed: Yes Vital Signs & Weight: Vital Signs (12 hours) Temp Pulse Resp BP Pulse Ox 10/21/17 11:08 98.5 F 94 16 135/80 96 10/21/17 09:05 99.5 F 100 18 151/88 H 95 10/21/17 08:00 99.5 F 100 18 Weight Admit Weight 166 lb Weight 166 lb 0.129 oz Most Recent Monitor Data Heart Rate from ECG 90 NIBP 111/66 NIBP BP-Mean 82 Respiration from ECG 25 SpO2 100 I&O: 10/20/17 10/21/17 10/22/17 06:59 06:59 06:59 Intake Total 2237 2440 Output Total 305 590 Balance 1932 1850 Result Diagrams: 10/21/17 03:52 10/21/17 03:52 Additional Labs: Accuchecks 10/21/17 10/21/17 10/21/17 11:07 05:22 02:08 POC Glucose 214 H 149 H 270 H 10/20/17 10/20/17 20:51 17:01 POC Glucose 285 H 203 H Phys Exam - Physical Examination HEENT: PERRLA Respiratory: no wheezing, no rales, no rhonchi, clear to auscultation bilateral Cardiovascular: RRR, no significant murmur, no rub Gastrointestinal: soft, no distention, positive bowel sounds + LLQ and RLQ tenderness, no rebound or guarding Musculoskeletal: no edema Dx/Plan (1) Bowel perforation Code(s): K63.1 - PERFORATION OF INTESTINE (NONTRAUMATIC) Status: Acute (2) Diabetes mellitus type 2 in nonobese Code(s): E11.9 - TYPE 2 DIABETES MELLITUS WITHOUT COMPLICATIONS Status: Acute (3) Hypertension Code(s): I10 - ESSENTIAL (PRIMARY) HYPERTENSION Status: Acute (4) Renal abscess Code(s): N15.1 - RENAL AND PERINEPHRIC ABSCESS Status: Acute - Plan * Bowel perforation with peritonitis- ? ruptured appendicitis- Continue Zosyn * Renal abscess- as above- continue Zosyn, and ID has been consulted to determine antibiotic choice and length of therapy * DM- blood glucose is stable- will change to standard SSI * HTN - blood pressure is stable * DVT and GI Prophylaxis .
[2017-10-21] MEDS: HumaLOG 300 UNITS/3 ML VIAL SC PRN ×2 (16:47→20:59)
[2017-10-21 17:12] LABS: HIV (1/2) Antibody/Antigen Non-Reactive (NonReactive); HIV 1/2 INDEX 0.08 S/CO (<1.00); Hep C IgG Ab Non-Reactive (NonReactive); Hep C Index 0.18 S/CO (0-0.79)
--- NOTE | 2017-10-21 21:48 | CON ---
DATE OF CONSULTATION: 10/21/2017 REASON FOR CONSULTATION: Peritonitis, renal abscess, and splenic lesion. HISTORY OF PRESENT ILLNESS: A 47-year-old admitted on 10/18/2017 about 3 days ago. When she presented with type 2 diabetes history, hypertension, coronary artery disease with prior bypass graft surgery, quite early age and well until about 3 months before when she was visiting some relatives in [place] and developed what she describes as left-sided flank pain associated with chills. After a few days, it went away and then on the day of admission, she developed progressive worsening pain and again on the left lower quadrant and left flank area and then this pain became generalized. She had denied any headaches, no visual symptoms, sore throat, odynophagia, dysphagia, no vomiting, no cough or sputum production or chest pain. No dysuria or hematuria. She did have a recollection of passing what she describes as air or gas through urination recently. She was admitted and was tachycardic on arrival with blood pressure 160/70 and temperature was 97.6. The abdomen was distended. General surgery consult obtained. Dr. Palafox did a laparoscopic intervention and assisted, there was obvious evidence of brown fluid in the peritoneal cavity. This was washed away and careful inspection did not identify any evidence of leakage in the colon. The appendix was removed. Cultures from the area yielded E. coli with a broad susceptibility profile. Cultures from the urine also with a similar organism. Urinalysis demonstrated 0-3 wbc's greater than 1000 glucose, protein 30. White cell count has come down from 14,000-11,700. Currently, Ms. Martin sitting by the bedside, still not feeling very well, but better than on admission. The abdominal pain has improved of about 70%. REVIEW OF SYSTEMS: Ten-point review of systems is as above. PAST MEDICAL HISTORY: Coronary artery disease with bypass graft surgery, type 2 diabetes, hypertension, hyperlipidemia. PAST SURGICAL HISTORY: Includes also , oophorectomy, and tubal ligation. 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 She smokes daily, used to drink rare infrequently. No drug use reported. ALLERGIES: None. CURRENT MEDICATIONS: Ecotrin, dextrose, Lovenox, glucagon, insulin, morphine, p.r.n. Protonix, Zosyn, tramadol. FAMILY HISTORY: Noncontributory. PHYSICAL EXAMINATION: VITAL SIGNS: T-max 99.5, blood pressure 130/80, pulse 94, respirations 16-18, O2 sat 96%. GENERAL: Appears no distress. SKIN: GIUSEPPE drain in the right side of the abdomen. She has a midline or left side of the midline, negative pressure dressing in place. Does not have a Acosta catheter at this time, since it was removed a few days ago. No lymphadenopathy. HEENT: Ocular movements conjugate. Oral cavity normal. NECK: Supple, no jugular vein distention. LUNGS: With diminished breath sounds at the bases. HEART: S1, S2, regular rate. No wheezing, no crackles. ABDOMEN: Bymd-vl-ginjtraaja distended, soft, mildly tender. Bowel sounds are present. EXTREMITIES: She moves extremities equally. No edema. Pulses 1+ in dorsalis pedis. Could not feel posterior tibialis, popliteals are faintly palpable. LABORATORY DATA: White cell count 11.7, hemoglobin 8.8, platelets 357 at this time. Creatinine is 0.85. AST 14, ALT 10, total bilirubin 0.3, alkaline phosphatase 167, albumin 2.8, and globulin 5.0. The latest abdomen and pelvis CT demonstrated small bilateral pleural effusions, irregularly shaped low attenuation in the spleen unchanged in size and extent, tiny gas pockets in this area, and left kidney with perinephric area haziness, and exophytic area of low attenuation consistent with perirenal abscess collection. Pathology of the appendix showed appendicitis with intramural acute inflammatory cells present. ASSESSMENT: 1. Renal abscess. 2. Splenic involvement from renal abscess and peritonitis secondary to renal abscess extension into the peritoneal cavity. The appendicitis probably is from the secondary effects of the peritonitis on the appendiceal structure. DISCUSSION: This is a quite unusual case, but case reports such as this have been published in the literature of patients with renal abscesses particularly in the left side, opening up into the peritoneal cavity and causing peritonitis. Typically, we have monomicrobial Gram-negative angelika pathogens recovered such as the E. coli that was identified in this case, which is the same one from urinary tract sample. The splenic findings are probably secondary to the same issue. The Spleen is frequently involved either via hematogenous route or through the direct involvement from organs anatomically close to the spleen such as the left kidney and the pancreas or the colon. In terms of management fortunately, the organism is susceptible to quinolones. I would advise discharge planning on oral quinolone for anywhere from 4-6 weeks, monitoring the progress of the patient's CT scan in the outpatient setting. KEILY
--- NOTE | 2017-10-21 22:17 | PDOC.GSPN ---
Surgery Progress Note: Subj - Subjective Narrative: Feels better, tolerating diet. Positive flatus and bowel movement. 45 mL slightly cloudy serous drainage from each GIUSEPPE yesterday. Wound clean and granulating. Pansensitive E Coli on urine and peritoneal cultures. Doing well, monoculture results suggest urologic source for peritonitis. Will likely transition to oral antibiotics tomorrow and discharge home soon. Continue VAC for now, consider delayed primary closure. Patient formerly seen in [facility] and intends to reestablish care there. Surgery Progress Note: Obj - Vital signs Vital signs: Vital Signs - Most Recent Temp Pulse Resp BP Pulse Ox 97.3 F L 100 16 164/88 H 99 10/21/17 19:58 10/21/17 19:58 10/21/17 19:58 10/21/17 19:58 10/21/17 19:58 Surgery Progress Note: Results - Labs Result Diagrams: 10/21/17 03:52 10/21/17 03:52 Lab results: Laboratory Results - last 24 hr 10/21/17 10/21/17 10/21/17 11:07 16:00 16:19 POC Glucose 214 H 292 H Hepatitis C Antibody Non-Reactive HIV 1&2 Antigen & Ab Non-Reactive 10/21/17 20:39 POC Glucose 190 H Hepatitis C Antibody HIV 1&2 Antigen & Ab
[2017-10-22] MEDS: Piperacillin/Tazobactam 3.375 GM in Sodium Chloride 0.9% 100 ML IVPB SCH ×2 (02:17→08:33)
[2017-10-22] MEDS: Sodium Chloride 0.9% 1,000 ML IV SCH ×2 (04:00→16:41)
[2017-10-22] MEDS: HumaLOG 300 UNITS/3 ML VIAL SC PRN ×4 (06:57→22:21)
[2017-10-22] MEDS: Aspirin 81 mg Enteric Coated Tablet PO SCH (08:38)
[2017-10-22] MEDS: Saccharomyces boulardii 250 MG CAP PO SCH (08:38)
[2017-10-22] MEDS: Polyethylene Glycol 3350 17 GM Packet PO SCH (08:38)
[2017-10-22] MEDS: Enoxaparin Sodium 40 MG/0.4 ML SYRINGE SC SCH (08:38)
[2017-10-22] MEDS: NPH, Human Insulin Isophane 300 UNIT/3 ML VIAL SC SCH (08:39)
--- NOTE | 2017-10-22 11:32 | PRG ---
DATE OF SERVICE: 10/22/[address] Mckay is much appreciated. SUBJECTIVE: The patient is still doing well and has no complaints and no pain. OBJECTIVE: Her vitals are stable. She remained afebrile with a T-max of 99 and the heart rate in 90 s. She is listed as voided on her urine output. She appears comfortable in a chair by the bed and i s reading. LABORATORY DATA: No new labs to review. ASSESSMENT: We have a 47-year-old female with what appears to be urinary tract infection that result ed in an abscess that resulted in translocation versus bacteremia with multisource components of infe ction, but doing well on IV antibiotics after exploratory laparotomy and appendectomy with a renal ab scess not enlarging at this time. Based on ID recommendations, I would switch her over to oral antib iotics when discharge is anticipated, and I emphasized with her that she will need to take these for at least 4 weeks if not longer. I will order an ultrasound at the 4-week interval as an outpatient a nd see her in the office to determine the need for any further antibiotics thereafter. I also emphas ized that she needs to take care of her sugars. This is another reason why she would not do well as an outpatient. I reviewed all of this in detail and answered all of her questions.
[2017-10-22] MEDS ORDERED: Ciprofloxacin 500 MG TAB PO SCH ×2 (13:00→20:00)
--- NOTE | 2017-10-22 14:00 | PDOC.PN ---
- Subjective Encounter Start Date: 10/22/17 Encounter Start Time: 12:45 Ms. Martin was seen today in follow-up of E.coli sepsis, with peritonitis, and renal abscess. She says she is feeling better. she has less pain. She has been tolerating a solid diet - Objective MAR Reviewed: Yes Vital Signs & Weight: Vital Signs (12 hours) Temp Pulse Resp BP Pulse Ox 10/22/17 11:40 98.5 F 91 16 129/81 98 10/22/17 08:39 98.7 F 92 14 148/87 H 96 10/22/17 07:15 99 F 91 16 10/22/17 04:00 99 F 91 16 133/81 95 Weight Admit Weight 166 lb Weight 166 lb 0.129 oz Most Recent Monitor Data Heart Rate from ECG 90 NIBP 111/66 NIBP BP-Mean 82 Respiration from ECG 25 SpO2 100 I&O: 10/21/17 10/22/17 10/23/17 06:59 06:59 06:59 Intake Total 2440 1160 960 Output Total 590 55 60 Balance 1850 1105 900 Result Diagrams: 10/21/17 03:52 10/21/17 03:52 Additional Labs: Accuchecks 10/22/17 10/22/17 10/21/17 10:47 05:50 20:39 POC Glucose 242 H 190 H 190 H 10/21/17 16:19 POC Glucose 292 H Phys Exam - Physical Examination HEENT: PERRLA Respiratory: no wheezing, no rales, no rhonchi, clear to auscultation bilateral Cardiovascular: RRR, no significant murmur, no rub Gastrointestinal: soft, non-tender, positive bowel sounds Musculoskeletal: no edema Dx/Plan (1) Bowel perforation Code(s): K63.1 - PERFORATION OF INTESTINE (NONTRAUMATIC) Status: Acute (2) Diabetes mellitus type 2 in nonobese Code(s): E11.9 - TYPE 2 DIABETES MELLITUS WITHOUT COMPLICATIONS Status: Acute (3) Hypertension Code(s): I10 - ESSENTIAL (PRIMARY) HYPERTENSION Status: Acute (4) Renal abscess Code(s): N15.1 - RENAL AND PERINEPHRIC ABSCESS Status: Acute - Plan * Peritonitis, and renal abscess due to E. Coli- ID recommendations noted. This was probably due to an originally urologic source. * She has been changed to Cipro, orally, and can be discharge home on this for 4 -6 weeks when she is ready * She will need re-imaging of the kidneys in 4 weeks * DM- blood glucose is stable * HTN - blood pressure is stable. * Disposition as per Surgery
[2017-10-22] MEDS: Ciprofloxacin 500 MG TAB PO SCH (19:11)
[2017-10-22] MEDS ORDERED: Lidocaine 1% w/Epinephrine 1:100K 20 ML VIAL FS SCH (19:30)
[2017-10-22] MEDS: traMADol HCl 50 MG TAB PO PRN (22:24)
[2017-10-23 05:50] LABS: #Eosinphils 0.1 thou/uL (0.0-0.7); #Lymphocytes 2.4 thou/uL (1.20-3.40); #Neutrophils 7.3 thou/uL (1.40-6.50); %Basophils 0.2 % (0.0-1.0); %Eosinophils 1.1 % (0.0-10.0); %Lymphocytes 22.4 % (21.0-51.0); %Monocytes 9.1 % (0.0-10.0); %Neutrophils 67.3 % (42.0-75.0); Mean Corpuscular HGB CONC 32.7 g/dL (32.0-36.0); Mean Corpuscular Hemoglobin 28.8 pg (27.0-31.0); Mean Corpuscular Volume 88.2 fl (81.0-99.0); Mean Platelet Volume 7.1 fL (7.4-10.4); Platelet Count 380 thou/uL (130-400); RBC Distribution Width 14.1 % (11.5-14.5); Red Blood Cell (RBC) Count 3.12 mill/uL (4.20-5.40); White Blood Cell (WBC) Count 10.9 thou/uL (4.8-10.8)
[2017-10-23] MEDS: Ciprofloxacin 500 MG TAB PO SCH (07:12)
[2017-10-23] MEDS: NPH, Human Insulin Isophane 300 UNIT/3 ML VIAL SC SCH (08:31)
[2017-10-23] MEDS: Sodium Chloride 0.9% 1,000 ML IV SCH (08:31)
[2017-10-23] MEDS: Aspirin 81 mg Enteric Coated Tablet PO SCH (08:32)
[2017-10-23] MEDS: Saccharomyces boulardii 250 MG CAP PO SCH (08:33)
[2017-10-23] MEDS: Enoxaparin Sodium 40 MG/0.4 ML SYRINGE SC SCH (08:33)
[2017-10-23] MEDS: Polyethylene Glycol 3350 17 GM Packet PO SCH (08:33)
[2017-10-23] MEDS ORDERED: Bacitracin Zinc 1 Packet TOP SCH (10:00)
[2017-10-23] MEDS: HumaLOG 300 UNITS/3 ML VIAL SC PRN (14:14)
[2017-10-23] MEDS ORDERED: NPH, Human Insulin Isophane 300 UNIT/3 ML VIAL SC SCH (15:00)
--- NOTE | 2017-10-23 15:41 | DIS ---
DATE OF ADMISSION: 10/18/2017 DATE OF DISCHARGE: 10/23/2017 PRIMARY CARE PROVIDER: [facility]. DISCHARGE DISPOSITION: Home. ADMITTING PROVIDER: Henry Palafox M.D. DISCHARGE MEDICATIONS: Tramadol 50 mg 1 or 2 tabs at bedtime p.r.n., Florastor 250 mg a day, NPH ins ulin 10 units subq in the morning, Cipro 500 mg p.o. b.i.d., and aspirin 81 mg a day. ALLERGIES: None. CODE STATUS: FULL. HOSPITAL COURSE: Patient admitted through the emergency room to the service of Dr. Henry Palafox. Patient was presented with abdominal pain. CT with suspected bowel perforation with free air or flui d. The patient was found to have elevated white count of 14,000, hemoglobin 10.3. Initial sodium 12 6, potassium 3.7, creatinine 1.46, BUN 19. Initial blood sugar was 475. Lactic acid was 2.5. The p atient eventually grew E. coli from her peritoneal fluid and her urine. The E. coli was pansensitive . On 10/18/2017, she was taken to the operating room and found to have fluid in the abdomen and infl madeleine appendix, which was removed. She was eventually seen in consultation by Dr. Jeanne Worthy, [facility], Dr. Emmanuel Yin, Pulmonology, [facility]. The patient was treated with approp riate pain medicines, IV antibiotics initially. She had been transitioned to oral antibiotics. It h as been explained to her that she will have to take oral antibiotics at least 4 weeks post-hospitaliz ation. During her hospital stay, her white count came down steadily from 14.8 high to 10.9, hemoglob in has remained in the 9-10 range. Platelet count is normal. She had an acute kidney failure which rapidly resolved with IV fluids postoperatively. She was followed with Accu-Chek sliding scale, long -acting insulin. Currently, she is alert, cooperative, pleasant with no complaints, desirous of lucero g home. Vital signs, blood pressure 151/85, pulse 91, respirations 16, temperature 97.9. Cardioresp iratory exam is normal. Abdomen is soft. Good bowel sounds. She is being discharged by Dr. Palafox . Follow up with Dr. Jeanne Worthy 3-4 weeks. Follow up with Dr. Henry Palafox in 14 days. She is on diabetic diet.
[2017-10-23 16:29] VITALS: BP 149/83; TEMP 98.1
== END 2017-10-23 17:11 | disposition home or self-care (01) | DRG 853 ==
LOC: ERS 18:39 → SDC/OP 10-18 00:39 → CCU 10-18 02:19 → SURG B 10-19 16:31
PROVIDERS: ADMIT Surgery; ATTEND Surgery
PROC: 0D9W0ZX Drainage of Peritoneum, Open Approach, Diagnostic (ICD-10-PCS; principal; 2017-10-18)
PROC: 0DTJ0ZZ Resection of Appendix, Open Approach (ICD-10-PCS; 2017-10-18)
DX: A41.51 Sepsis due to Escherichia coli [E. coli] (principal); K63.1 Perforation of intestine (nontraumatic); N15.1 Renal and perinephric abscess; K35.3 Acute appendicitis with localized peritonitis; N39.0 Urinary tract infection, site not specified; J91.8 Pleural effusion in other conditions classified elsewhere; J98.11 Atelectasis; D72.825 Bandemia; I10 Essential (primary) hypertension; E78.5 Hyperlipidemia, unspecified; I25.10 Atherosclerotic heart disease of native coronary artery without angina pectoris; Z72.0 Tobacco use; Z95.1 Presence of aortocoronary bypass graft; Z91.19 Patient's noncompliance with other medical treatment and regimen; E11.65 Type 2 diabetes mellitus with hyperglycemia; Z79.84 Long term (current) use of oral hypoglycemic drugs; E83.42 Hypomagnesemia
CPT/HCPCS: 36415; 36416; 74176; 74177; 74178; 80048; 80053; 81003; 81015; 82010; 82550; 82553; 83605; 83690; 83735; 84100; 84484; 85007; 85025; 85027; 86803; 86850; 86900; 86901; 87040; 87070; 87077; 87086; 87186; 87205; 87389; 88304; 93005; 96361; 96365; 96366; 96375; 99406; A4216; C9113; J0131; J1170; J1644; J1650; J1815; J2001; J2270; J2370; J2543; J2704; J3010; J3475; J3480; J7050

== ENCOUNTER 2017-11-18 11:05 | Outpatient (CLI) | payer OTHER, SELFPAY ==
--- NOTE | 2017-11-18 13:56 | ULT ---
RENAL UTLRASOUND: DATE: 11/18/17. HISTORY: Renal abscess on the left status post antibiotic treatment. TECHNIQUE: Multiplanar, andrews scale sonographic imaging of the kidneys and urinary bladder obtained. FINDINGS: The right kidney measures 2.0 x 5.0 x 5.0 cm and demonstrates no stone, hydronephrosis, or mass. The left kidney measures 10.8 x 5.2 x 5.0 cm and demonstrates no stone or hydronephrosis. There is a vague area of decreased echogenicity within the upper pole on the left suggesting a probable cystic lesion, measuring approximately 2.0 x 1.8 x 1.[address] performed 10/20/17, there was a hypode nse lesion within the kidney as well as in the perirenal space in this region. The finding on this e xam may represent residual abscess within the left kidney which has decreased in size but coalesced. Imaged urinary bladder is grossly unremarkable. IMPRESSION: Hypoechoic lesion within the upper pole/mid pole of the left kidney as above. This may represent res idual abscess. The study of choice for full assessment is repeat CT examination with IV contrast. CODE T POS: KIEL
== END 2017-11-18 11:06 | disposition home or self-care (01) ==
LOC: ULT 11:05
PROVIDERS: ATTEND Urology
DX: N15.1 Renal and perinephric abscess (principal); N28.9 Disorder of kidney and ureter, unspecified
CPT/HCPCS: 76770

== ENCOUNTER 2018-07-08 10:42 | Emergency (ER) | payer SELFPAY, OTHER | END 2018-07-08 12:01 | disposition left against medical advice (07) | LOC: ERS 10:42 | DX: Z53.21 Procedure and treatment not carried out due to patient leaving prior to being seen by health care provider (principal) ==

== ENCOUNTER 2020-07-05 16:29 | Emergency (ER) | payer OTHER, SELFPAY ==
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
[2020-07-05] MEDS ORDERED: Morphine 4 MG/ML VIAL ONE (20:48)
[2020-07-05] MEDS ORDERED: Ondansetron PF 4 MG/2 ML Vial ONE (20:48)
[2020-07-05] MEDS ORDERED: Labetalol HCl 100 MG/20 ML VIAL ONE (21:35)
--- NOTE | 2020-07-27 13:12 | EKG ---
Test Reason : Blood Pressure : / mmHG Vent. Rate : 099 BPM Atrial Rate : 099 BPM P-R Int : 134 ms QRS Dur : 090 ms QT Int : 382 ms P-R-T Axes : 032 -33 024 degrees QTc Int : 490 ms Normal sinus rhythm Possible Left atrial enlargement Left axis deviation Left ventricular hypertrophy Inferior infarct , age undetermined Anterolateral infarct , age undetermined Abnormal ECG Confirmed by TRACEY BATISTA ([id number]), makeup editor NAY FUNES ([id number]) on 07/27/2020 1:12:05 PM Referred By: Confirmed By:TRACEY Quijano
== END 2020-07-05 22:31 | disposition home or self-care (01) ==
LOC: ERS 16:29
DX: S16.1XXA Strain of muscle, fascia and tendon at neck level, initial encounter (principal); S46.912A Strain of unspecified muscle, fascia and tendon at shoulder and upper arm level, left arm, initial encounter; I10 Essential (primary) hypertension; V89.2XXA Person injured in unspecified motor-vehicle accident, traffic, initial encounter; Z79.899 Other long term (current) drug therapy; Z79.4 Long term (current) use of insulin; I25.10 Atherosclerotic heart disease of native coronary artery without angina pectoris; E11.9 Type 2 diabetes mellitus without complications; E78.5 Hyperlipidemia, unspecified; Z87.891 Personal history of nicotine dependence
CPT/HCPCS: 71045; 72125; 93005; 96374; 96375; J2270; J2405